=== PATIENT | male | born 1970 | race Two or more races ===

== ENCOUNTER 2018-04-16 15:34 | Emergency (ER) | payer OTHER ==
--- NOTE | 2018-04-16 17:33 | EDM.PDOC ---
<Miguel Pratt Z - Last Filed: 04/16/18 17:43> ED HPI GENERAL MEDICAL PROBLEM - General Chief Complaint: Skin Complaint Stated Complaint: LT NOSTRIL ISSUES Time Seen by Provider: 04/16/18 17:15 Source of Information: Reports: Patient - History of Present Illness INITIAL COMMENTS - FREE TEXT/NARRATIVE: HISTORY AND PHYSICAL: History of present illness: 47-year-old male presenting with cellulitis and swelling of the septal and upper lip area. Patient states the patient started on April 08 after he had been snorting cocaine for the past 2-3 days prior. Patient states that there was a wound in the area and it seemed to start to swell and get worse. Patient went to [facility] for initial assessment 2 days prior where they started him on ampicillin however the patient stated that his swelling and facial pain got worse he will be presented to the clinic last night where they lanced the site however there was no purulent discharge eliminated, patient was subsequently given a prescription for Levaquin 750 mg to be taken for 10 days along with Percocet for pain. Patient is stating that now his facial swelling has improved, he feels that the antibiotics have actually improved his swelling and the Percocet is controlling his pain. Patient is actually now stated that he would not like anything further to be done at that he feels that the antibiotics are adequately working. Review of systems: As per history of present illness and below otherwise all systems reviewed and negative. Past medical history: As per history of present illness and as reviewed below otherwise noncontributory. Surgical history: As per history of present illness and as reviewed below otherwise noncontributory. Social history: No reported history of drug or alcohol abuse. Family history: As per history of present illness and as reviewed below otherwise noncontributory. Physical exam: HEENT: Atraumatic, normocephalic, pupils reactive, negative for conjunctival pallor or scleral icterus, mucous membranes moist, swelling of the upper lip and philtrum area; there is mild erythema around the area of swelling/ induration, throat clear, neck supple, nontender, trachea midline. Lungs: Clear to auscultation, breath sounds equal bilaterally, chest nontender. Heart: S1S2, regular, negative for clicks, rubs, or JVD. Extremities: Atraumatic, negative for cords or calf pain. Neurovascular unremarkable. Neuro: Awake, alert, oriented. Cranial nerves II through XII unremarkable. Cerebellum unremarkable. Motor and sensory unremarkable throughout. Exam nonfocal. Diagnostics: None Therapeutics: None Impression: 47-year-old male presenting with cellulitis of the upper lip and philtrum area improving on antibiotics prescribed by outpatient clinic. Plan: Continue with medication as prescribed by [facility] which included Levaquin 750 mg once daily for 10 days. If symptoms worsen including swelling, fevers or chills or any other signs of systemic infection the patient is to return to the ER for reevaluation or follow up with primary care provider. Definitive disposition and diagnosis as appropriate pending reevaluation and review of above. Face Pain Score (Numeric/FACES): 10 - Related Data Allergies Allergy/AdvReac Type Severity Reaction Status Date / Time No Known Allergies Allergy Verified 04/16/18 16:31 Home Meds: Home Meds Glimepiride 4 mg PO DAILY 04/16/18 [History] Levofloxacin [Levaquin] 750 mg PO DAILY 04/16/18 [History] Lisinopril 20 mg PO DAILY 04/16/18 [History] metFORMIN [Glucophage XR] 1,000 mg PO BIDMEALS 04/16/18 [History] Past Medical History Cardiovascular History: Reports: Hypertension Endocrine/Metabolic History: Reports: Diabetes, Type II - Infectious Disease History Infectious Disease History: Reports: None Social & Family History - Family History Family Medical History: Noncontributory - Tobacco Use Smoking Status *Q: Current Some Day Smoker Years of Tobacco use: 2 Packs/Tins Daily: 0.1 - Caffeine Use Caffeine Use: Reports: Coffee - Recreational Drug Use Recreational Drug Use: Yes Recreational Drug Type: Reports: Marijuana/Hashish ED ROS GENERAL - Review of Systems Review Of Systems: ROS reveals no pertinent complaints other than HPI. ED EXAM, SKIN/RASH Exam: See Below Course - Vital Signs Last Recorded V/S: Last Vital Signs Temp 36.4 C 04/16/18 16:33 Pulse 93 04/16/18 16:33 Resp 18 04/16/18 16:33 BP 120/77 04/16/18 16:33 Pulse Ox 96 04/16/18 16:33 Departure - Departure Time of Disposition: 17:50 Disposition: Home, Self-Care 01 Condition: Good Clinical Impression: Cellulitis - Discharge Information Instructions: Cellulitis, Adult, Preseptal Cellulitis, Adult Referrals: Miguel Pratt MD [Emergency Provider] - PCP,Not In Area [Primary Care Provider] - Forms: ED Department Discharge Additional Instructions: Please continue to take the antibiotics as prescribed. Continue take the pain medications as prescribed, also put ice on the area which will help decrease the swelling and pain that you are feeling. Currently you've taken 1 day course of a 10 day course of antibiotics, please allow for adequate time for the antibiotics to take full effect however please watch out for swelling that is getting worse, any signs of fevers/chills, or worsening of your symptoms. If any of these are present please return to the ER for reevaluation or see your primary care provider. Please make a follow-up appointment with Dr. Pratt at the family medicine residency clinic in the [facility] for Thursday or Thursday of next week. The following information is given to patients seen in the emergency department who are being discharged to home. This information is to outline your options for follow-up care. We provide all patients seen in our emergency department with a follow-up referral. The need for follow-up, as well as the timing and circumstances, are variable depending upon the specifics of your emergency department visit. If you don't have a primary care physician on staff, we will provide you with a referral. We always advise you to contact your personal physician following an emergency department visit to inform them of the circumstance of the visit and for follow-up with them and/or the need for any referrals to a consulting specialist. The emergency department will also refer you to a specialist when appropriate. This referral assures that you have the opportunity for follow-up care with a specialist. All of these measure are taken in an effort to provide you with optimal care, which includes your follow-up. Under all circumstances we always encourage you to contact your private physician who remains a resource for coordinating your care. When calling for follow-up care, please make the office aware that this follow-up is from your recent emergency room visit. If for any reason you are refused follow-up, please contact the [facility] Emergency Department at and asked to speak to the emergency department charge nurse. <Meghan Canela - Last Filed: 04/16/18 17:52> ED HPI GENERAL MEDICAL PROBLEM - History of Present Illness INITIAL COMMENTS - FREE TEXT/NARRATIVE: This is Dr. Canela dictating an addendum note as I'm the supervising physician on this case and I personally seen this patient. I agree with a history and physical as above and in discussing options for him he feels that he might have overreacted and that he did not give the medication time and that the swelling is improving. He would like to defer any intervention at this time and just monitor it for the next 24 hours and continue his antibiotics. We did discussed reasons to return to the ED and things to be worried about and he accepts those. ED ROS GENERAL - Review of Systems Review Of Systems: ROS reveals no pertinent complaints other than HPI. ED EXAM, SKIN/RASH Exam: See Below (See dictation) Departure - Departure Condition: Good
== END 2018-04-16 17:50 | disposition home or self-care (01) ==
LOC: MW.ED 15:34
DX: K13.0 Diseases of lips (principal); I10 Essential (primary) hypertension; E11.9 Type 2 diabetes mellitus without complications; F17.210 Nicotine dependence, cigarettes, uncomplicated; Z79.899 Other long term (current) drug therapy; Z79.84 Long term (current) use of oral hypoglycemic drugs
CPT/HCPCS: 99283

== ENCOUNTER 2018-04-17 17:01 | Inpatient (IN) | payer OTHER ==
--- NOTE | 2018-04-17 17:36 | EDM.PDOC ---
<Meghan Canela - Last Filed: 04/17/18 20:08> ED HPI GENERAL MEDICAL PROBLEM - General Chief Complaint: Skin Complaint Stated Complaint: Lip swelling Time Seen by Provider: 04/17/18 17:01 - History of Present Illness INITIAL COMMENTS - FREE TEXT/NARRATIVE: This is Dr. Canela dictating an addendum note as I assumed care of this case at 7 PM. I was involved in the evaluation of this patient yesterday when he came in due to concerns about swelling. When I saw him yesterday he felt quite adamant about not testing or intervention as he thought that he might of overreacted and it was improving. At that point there was some induration and swelling to his upper lip and left near of the nose with some diffuse ill- defined erythema in the nasal labial folds the patient was nontoxic and had just started his Levaquin. Today on my evaluation the symptoms have worsened and the swelling and induration has increased causing a diffuse swollen upper lip extending into the left near and diffuse erythema in the surround. There is no crepitus here there is no extension to the maxilla on palpation and the septum of the nose is intact. Labs have been reviewed by me and I have discussed with the patient his elevated glucose of 331. He says that he has been taking his metformin but he ran out of his glimepride. I do not feel that this elevated blood sugar is helping us. He did start on ampicillin then switch to Levaquin 2 doses and here in the ED received a dose of clindamycin. Again to reiterate from my note from yesterday incision and drainage was attempted at the outside ED on April 13 without yield of any fluid. I reviewed the CT scan with this patient including the punctate small areas of low attenuation fluid with in the diffuse soft tissue thickening and edema in this region and that there is a small pocket measuring 1.3 cm that will likely need drainage I have offered him admission here with the understanding that we do not have plastic surgery until Thursday morning, for IV antibiotics and glucose management and if his symptomatology worsens he would need transfer. I've also offered him transferred to [facility] for evaluation by plastic surgery/ENT and admission there. Patient is currently contemplating what he would like to do at 1940 5 PM. He says he is feeling better from a pain perspective. After a liter of fluid I will repeat the Accu-Chek and given the second liter of IV fluids. After giving the patient some time to contemplate the choices he says that he does not want to be transferred to [facility] and would prefer admission here. He understands our limitations and that we will not have plastic surgery/ ENT until Thursday morning and he accepts those. He would like to try IV antibiotics to see if this improves without further intervention. I discussed this case with Dr. Dhillon at 2005 p.m. and he accepts the patient for inpatient care. We will give him a dose of vancomycin and plan for admission. Impression: facial cellulitis/abscess failed outpatient treatment - Related Data Allergies Allergy/AdvReac Type Severity Reaction Status Date / Time No Known Allergies Allergy Verified 04/17/18 17:26 Home Meds: Home Meds Glimepiride 1 tab PO DAILY 04/16/18 [History] Levofloxacin [Levaquin] 1 tab PO DAILY 04/16/18 [History] Lisinopril 1 tab PO DAILY 04/16/18 [History] metFORMIN HCl [Metformin HCl] 1 tab PO BID 04/17/18 [History] ED ROS GENERAL - Review of Systems Review Of Systems: ROS reveals no pertinent complaints other than HPI. ED EXAM, SKIN/RASH Exam: See Below (see dictation) Course - Vital Signs Last Recorded V/S: Last Vital Signs Temp 97.4 F 04/18/18 08:00 Pulse 78 04/18/18 08:00 Resp 16 04/18/18 08:00 BP 136/95 H 04/18/18 08:00 Pulse Ox 96 04/18/18 08:00 - Orders/Labs/Meds Orders: Active Orders 24 hr Category Date Time Status Max Facial Sinus w wo Cont [CT] Stat Exams 04/17/18 17:55 Taken Sodium Chloride 0.9% [Saline Flush] Med 04/17/18 17:41 Active 10 ml FLUSH ASDIRECTED PRN Sodium Chloride 0.9% [Saline Flush] Med 04/17/18 17:41 Active 2.5 ml FLUSH ASDIRECTED PRN Saline Lock Insert [OM.PC] Stat Oth 04/17/18 17:41 Ordered Medication Orders Acetaminophen (Tylenol) 650 mg PO Q6H PRN PRN Reason: Pain Last Admin: 04/18/18 02:25 Dose: 650 mg Vancomycin HCl 1,250 mg/ (Sodium Chloride) 250 mls @ 166.667 mls/hr IV Q8H [facility] Ibuprofen (Motrin) 400 mg PO Q6H PRN PRN Reason: Pain Last Admin: 04/18/18 07:26 Dose: 400 mg Admin: 04/18/18 01:21 Dose: 400 mg Insulin Aspart (Novolog) 0 unit SUBCUT TIDAC [facility]; Protocol Last Admin: 04/18/18 07:28 Dose: 2 unit Lisinopril (Prinivil) 20 mg PO DAILY [facility] Metformin HCl (Glucophage) 1,000 mg PO BIDPC [facility] Last Admin: 04/18/18 07:33 Dose: 1,000 mg Oxycodone HCl (Oxycodone) 5 mg PO Q4H PRN PRN Reason: Pain Last Admin: 04/18/18 05:08 Dose: 5 mg Admin: 04/17/18 23:39 Dose: 5 mg Sodium Chloride (Saline Flush) 10 ml FLUSH ASDIRECTED PRN PRN Reason: Keep Vein Open Last Admin: 04/17/18 18:00 Dose: 10 ml Sodium Chloride (Saline Flush) 2.5 ml FLUSH ASDIRECTED PRN PRN Reason: Keep Vein Open Last Admin: 04/17/18 18:00 Dose: 2.5 ml Vancomycin HCl (Pharmacy To Dose - Vancomycin) 1 dose .XX ASDIRECTED [facility] Labs: Laboratory Tests 04/17/18 04/17/18 04/17/18 Range/Units 17:54 17:54 19:47 WBC 9.87 (4.0-11.0) K/uL RBC 5.03 (4.50-5.90) M/uL Hgb 15.9 (13.0-17.0) g/dL Hct 42.5 (38.0-50.0) % MCV 84.5 (80.0-98.0) fL MCH 31.6 (27.0-32.0) pg MCHC 37.4 H (31.0-37.0) g/dL RDW Std Deviation 40.4 (28.0-62.0) fl RDW Coeff of Cyndie 13 (11.0-15.0) % Plt Count 240 (150-400) K/uL MPV 9.90 (7.40-12.00) fL Neut % (Auto) 73.8 (48.0-80.0) % Lymph % (Auto) 16.8 (16.0-40.0) % Deuel % (Auto) 8.3 (0.0-15.0) % Eos % (Auto) 0.9 (0.0-7.0) % Baso % (Auto) 0.2 (0.0-1.5) % Neut # (Auto) 7.3 H (1.4-5.7) K/uL Lymph # (Auto) 1.7 (0.6-2.4) K/uL Deuel # (Auto) 0.8 (0.0-0.8) K/uL Eos # (Auto) 0.1 (0.0-0.7) K/uL Baso # (Auto) 0.0 (0.0-0.1) K/uL Nucleated RBC % 0.0 /100WBC Nucleated RBCs # 0 K/uL Sodium 129 L (136-148) mmol/L Potassium 4.2 (3.5-5.1) mmol/L Chloride 95 L (98-107) mmol/L Carbon Dioxide 23.4 (21.0-32.0) mmol/L BUN 13 (7.0-18.0) mg/dL Creatinine 1.0 (0.8-1.3) mg/dL Est Cr Clr Drug Dosing 89.30 mL/min Estimated GFR (MDRD) > 60.0 ml/min Glucose 331 H (74-106) mg/dL POC Glucose 280 H (60-110) mg/dL Calcium 9.3 (8.5-10.1) mg/dL Total Bilirubin 0.6 (0.2-1.0) mg/dL AST 27 (15-37) IU/L ALT 33 (14-63) IU/L Alkaline Phosphatase 79 (46-116) U/L Total Protein 7.8 (6.4-8.2) g/dL Albumin 3.3 L (3.4-5.0) g/dL Globulin 4.5 H (2.0-3.5) g/dL Albumin/Globulin Ratio 0.7 L (1.3-2.8) Meds: Medications Generic Name Dose Route Start Last Admin Trade Name Freq PRN Reason Stop Dose Admin Acetaminophen 650 mg 04/17/18 21:47 04/18/18 02:25 Tylenol PO 650 mg Q6H PRN Administration Pain Vancomycin HCl 1,250 mg/ 250 mls @ 166.667 mls/hr 04/18/18 12:00 Sodium Chloride IV Q8H [facility] Ibuprofen 400 mg 04/17/18 21:47 04/18/18 07:26 Motrin PO 400 mg Q6H PRN Administration Pain Insulin Aspart 0 unit 04/18/18 07:30 04/18/18 07:28 Novolog SUBCUT 2 unit TIDAC [facility] Administration Protocol Lisinopril 20 mg 04/18/18 09:00 Prinivil PO DAILY [facility] Metformin HCl 1,000 mg 04/18/18 08:30 04/18/18 07:33 Glucophage PO 1,000 mg BIDPC [facility] Administration Oxycodone HCl 5 mg 04/17/18 21:46 04/18/18 05:08 Oxycodone PO 5 mg Q4H PRN Administration Pain Sodium Chloride 10 ml 04/17/18 17:41 04/17/18 18:00 Saline Flush FLUSH 10 ml ASDIRECTED PRN Administration Keep Vein Open Sodium Chloride 2.5 ml 04/17/18 17:41 04/17/18 18:00 Saline Flush FLUSH 2.5 ml ASDIRECTED PRN Administration Keep Vein Open Vancomycin HCl 1 dose 04/17/18 21:45 Pharmacy To Dose - Vancomycin .XX ASDIRECTED [facility] Discontinued Medications Generic Name Dose Route Start Last Admin Trade Name Freq PRN Reason Stop Dose Admin Clindamycin Phosphate 600 mg/ 50 mls @ 100 mls/hr 04/17/18 17:41 04/17/18 17: 57 Premix IV 04/17/18 18:10 100 mls/hr ONETIME ONE Administration Sodium Chloride 1,000 mls @ 999 mls/hr 04/17/18 17:56 04/17/18 18:03 Normal Saline IV 04/17/18 18:56 999 mls/hr .Bolus ONE Administration Sodium Chloride 1,000 mls @ 999 mls/hr 04/17/18 18:45 04/17/18 19:53 Normal Saline IV 04/17/18 19:45 999 mls/hr .Bolus ONE Administration Vancomycin HCl 1 gm/ Sodium 250 mls @ 250 mls/hr 04/17/18 20:07 04/17/18 20: 16 Chloride IV 04/17/18 21:06 250 mls/hr ONETIME ONE Administration Vancomycin HCl 1,250 mg/ 250 mls @ 166.667 mls/hr 04/18/18 04:00 04/18/18 03: 15 Dextrose/Water IV 166.667 mls/hr Q8H [facility] Administration Iopamidol 75 ml 04/17/18 19:03 04/17/18 19:04 Isovue Multipack-370 (76%) IVPUSH 04/17/18 19:04 75 ml ONETIME STA Administration Ketorolac Tromethamine 30 mg 04/17/18 17:44 04/17/18 17:57 Toradol IVPUSH 04/17/18 17:45 30 mg ONETIME ONE Administration Departure - Departure Time of Disposition: 20:09 Disposition: Admitted As Inpatient 67 Condition: Good Clinical Impression: Facial cellulitis, Nasal abscess, Facial abscess - Discharge Information - My Orders Last 24 Hours: My Active Orders 04/17/18 17:41 Sodium Chloride 0.9% [Saline Flush] 10 ml FLUSH ASDIRECTED PRN Sodium Chloride 0.9% [Saline Flush] 2.5 ml FLUSH ASDIRECTED PRN Saline Lock Insert [OM.PC] Stat 04/17/18 17:55 Max Facial Sinus w wo Cont [CT] Stat - Assessment/Plan Last 24 Hours: My Active Orders 04/17/18 17:41 Sodium Chloride 0.9% [Saline Flush] 10 ml FLUSH ASDIRECTED PRN Sodium Chloride 0.9% [Saline Flush] 2.5 ml FLUSH ASDIRECTED PRN Saline Lock Insert [OM.PC] Stat 04/17/18 17:55 Max Facial Sinus w wo Cont [CT] Stat <Pushpa Felipe - Last Filed: 04/18/18 08:31> ED HPI GENERAL MEDICAL PROBLEM - General Source of Information: Reports: Patient History Limitations: Reports: No Limitations - History of Present Illness INITIAL COMMENTS - FREE TEXT/NARRATIVE: History of present illness: []Patient is a diabetic and has a nasal infection his upper lip that began on April 08 after he been snorting cocaine for 2-3 days prior. He was seen at [facility] in [facility] and put on ampicillin on April 13. He returned to the clinic on April 15 where they tried to drain it but were unsuccessful according to the patient. At that time they changed his ampicillin to Levaquin and gave him Percocet. Patient was seen here yesterday for recheck was told to give the antibiotics more time to work. Patient returns today with worsening symptoms and states he ran out of his Percocet. Patient denies any fevers, headaches, difficulty swallowing or breathing. Patient was referred to the [facility] medical clinic. Review of systems: As per history of present illness and below otherwise all systems reviewed and negative. Past medical history: As per history of present illness and as reviewed below otherwise noncontributory. Surgical history: As per history of present illness and as reviewed below otherwise noncontributory. Social history: No reported history of drug or alcohol abuse. Family history: As per history of present illness and as reviewed below otherwise noncontributory. Physical exam: General: Well developed, well nourished in NAD HEENT: Atraumatic, normocephalic, pupils reactive, negative for conjunctival pallor or scleral icterus, mucous membranes moist, throat clear, neck supple, nontender, trachea midline. The skin superior to upper lip is indurated and erythematous, his upper lip is edematous. Lungs: Clear to auscultation, breath sounds equal bilaterally, chest nontender. Heart: S1S2, regular, negative for clicks, rubs, or JVD. Abdomen: Soft, nondistended, nontender. Negative for masses or hepatosplenomegaly. Negative for costovertebral tenderness. Pelvis: Stable nontender. Genitourinary: Deferred. Rectal: Deferred. Extremities: Atraumatic, negative for cords or calf pain. Neurovascular unremarkable. Neuro: Awake, alert, oriented. Cranial nerves II through XII unremarkable. Cerebellum unremarkable. Motor and sensory unremarkable throughout. Exam nonfocal. Diagnostics: []CBC normal, chemistry normal except glucose of 333, CT scan face and sinuses is pending, blood cultures were not drawn at this time due to patient on 2 different antibiotics Therapeutics: []Patient given clindamycin IV Impression: []Patient cellulitis Plan: []As this case is signed out to Dr. Canela to check the CT scan results and for final disposition Definitive disposition and diagnosis as appropriate pending reevaluation and review of above. Face Pain Score (Numeric/FACES): 8 Past Medical History Cardiovascular History: Reports: Hypertension Endocrine/Metabolic History: Reports: Diabetes, Type II - Infectious Disease History Infectious Disease History: Reports: None Social & Family History - Family History Family Medical History: Noncontributory - Caffeine Use Caffeine Use: Reports: Coffee ED ROS GENERAL - Review of Systems Review Of Systems: See Below ED EXAM, SKIN/RASH Exam: See Below (See history of present illness) Course - Vital Signs Last Recorded V/S: Last Vital Signs Temp 97.4 F 04/18/18 08:00 Pulse 78 04/18/18 08:00 Resp 16 04/18/18 08:00 BP 136/95 H 04/18/18 08:00 Pulse Ox 96 04/18/18 08:00 - Orders/Labs/Meds Orders: Active Orders 24 hr Category Date Time Status Max Facial Sinus w wo Cont [CT] Stat Exams 04/17/18 17:55 Taken Sodium Chloride 0.9% [Saline Flush] Med 04/17/18 17:41 Active 10 ml FLUSH ASDIRECTED PRN Sodium Chloride 0.9% [Saline Flush] Med 04/17/18 17:41 Active 2.5 ml FLUSH ASDIRECTED PRN Saline Lock Insert [OM.PC] Stat Oth 04/17/18 17:41 Ordered Medication Orders Acetaminophen (Tylenol) 650 mg PO Q6H PRN PRN Reason: Pain Last Admin: 04/18/18 02:25 Dose: 650 mg Vancomycin HCl 1,250 mg/ (Sodium Chloride) 250 mls @ 166.667 mls/hr IV Q8H [facility] Ibuprofen (Motrin) 400 mg PO Q6H PRN PRN Reason: Pain Last Admin: 04/18/18 07:26 Dose: 400 mg Admin: 04/18/18 01:21 Dose: 400 mg Insulin Aspart (Novolog) 0 unit SUBCUT TIDAC [facility]; Protocol Last Admin: 04/18/18 07:28 Dose: 2 unit Lisinopril (Prinivil) 20 mg PO DAILY [facility] Metformin HCl (Glucophage) 1,000 mg PO BIDPC [facility] Last Admin: 04/18/18 07:33 Dose: 1,000 mg Oxycodone HCl (Oxycodone) 5 mg PO Q4H PRN PRN Reason: Pain Last Admin: 04/18/18 05:08 Dose: 5 mg Admin: 04/17/18 23:39 Dose: 5 mg Sodium Chloride (Saline Flush) 10 ml FLUSH ASDIRECTED PRN PRN Reason: Keep Vein Open Last Admin: 04/17/18 18:00 Dose: 10 ml Sodium Chloride (Saline Flush) 2.5 ml FLUSH ASDIRECTED PRN PRN Reason: Keep Vein Open Last Admin: 04/17/18 18:00 Dose: 2.5 ml Vancomycin HCl (Pharmacy To Dose - Vancomycin) 1 dose .XX ASDIRECTED [facility] Labs: Laboratory Tests 04/17/18 04/17/18 04/17/18 Range/Units 17:54 17:54 19:47 WBC 9.87 (4.0-11.0) K/uL RBC 5.03 (4.50-5.90) M/uL Hgb 15.9 (13.0-17.0) g/dL Hct 42.5 (38.0-50.0) % MCV 84.5 (80.0-98.0) fL MCH 31.6 (27.0-32.0) pg MCHC 37.4 H (31.0-37.0) g/dL RDW Std Deviation 40.4 (28.0-62.0) fl RDW Coeff of Cyndie 13 (11.0-15.0) % Plt Count 240 (150-400) K/uL MPV 9.90 (7.40-12.00) fL Neut % (Auto) 73.8 (48.0-80.0) % Lymph % (Auto) 16.8 (16.0-40.0) % Deuel % (Auto) 8.3 (0.0-15.0) % Eos % (Auto) 0.9 (0.0-7.0) % Baso % (Auto) 0.2 (0.0-1.5) % Neut # (Auto) 7.3 H (1.4-5.7) K/uL Lymph # (Auto) 1.7 (0.6-2.4) K/uL Deuel # (Auto) 0.8 (0.0-0.8) K/uL Eos # (Auto) 0.1 (0.0-0.7) K/uL Baso # (Auto) 0.0 (0.0-0.1) K/uL Nucleated RBC % 0.0 /100WBC Nucleated RBCs # 0 K/uL Sodium 129 L (136-148) mmol/L Potassium 4.2 (3.5-5.1) mmol/L Chloride 95 L (98-107) mmol/L Carbon Dioxide 23.4 (21.0-32.0) mmol/L BUN 13 (7.0-18.0) mg/dL Creatinine 1.0 (0.8-1.3) mg/dL Est Cr Clr Drug Dosing 89.30 mL/min Estimated GFR (MDRD) > 60.0 ml/min Glucose 331 H (74-106) mg/dL POC Glucose 280 H (60-110) mg/dL Calcium 9.3 (8.5-10.1) mg/dL Total Bilirubin 0.6 (0.2-1.0) mg/dL AST 27 (15-37) IU/L ALT 33 (14-63) IU/L Alkaline Phosphatase 79 (46-116) U/L Total Protein 7.8 (6.4-8.2) g/dL Albumin 3.3 L (3.4-5.0) g/dL Globulin 4.5 H (2.0-3.5) g/dL Albumin/Globulin Ratio 0.7 L (1.3-2.8) Meds: Medications Generic Name Dose Route Start Last Admin Trade Name Freq PRN Reason Stop Dose Admin Acetaminophen 650 mg 04/17/18 21:47 04/18/18 02:25 Tylenol PO 650 mg Q6H PRN Administration Pain Vancomycin HCl 1,250 mg/ 250 mls @ 166.667 mls/hr 04/18/18 12:00 Sodium Chloride IV Q8H [facility] Ibuprofen 400 mg 04/17/18 21:47 04/18/18 07:26 Motrin PO 400 mg Q6H PRN Administration Pain Insulin Aspart 0 unit 04/18/18 07:30 04/18/18 07:28 Novolog SUBCUT 2 unit TIDAC [facility] Administration Protocol Lisinopril 20 mg 04/18/18 09:00 Prinivil PO DAILY [facility] Metformin HCl 1,000 mg 04/18/18 08:30 04/18/18 07:33 Glucophage PO 1,000 mg BIDPC [facility] Administration Oxycodone HCl 5 mg 04/17/18 21:46 04/18/18 05:08 Oxycodone PO 5 mg Q4H PRN Administration Pain Sodium Chloride 10 ml 04/17/18 17:41 04/17/18 18:00 Saline Flush FLUSH 10 ml ASDIRECTED PRN Administration Keep Vein Open Sodium Chloride 2.5 ml 04/17/18 17:41 04/17/18 18:00 Saline Flush FLUSH 2.5 ml ASDIRECTED PRN Administration Keep Vein Open Vancomycin HCl 1 dose 04/17/18 21:45 Pharmacy To Dose - Vancomycin .XX ASDIRECTED [facility] Discontinued Medications Generic Name Dose Route Start Last Admin Trade Name Freq PRN Reason Stop Dose Admin Clindamycin Phosphate 600 mg/ 50 mls @ 100 mls/hr 04/17/18 17:41 04/17/18 17: 57 Premix IV 04/17/18 18:10 100 mls/hr ONETIME ONE Administration Sodium Chloride 1,000 mls @ 999 mls/hr 04/17/18 17:56 04/17/18 18:03 Normal Saline IV 04/17/18 18:56 999 mls/hr .Bolus ONE Administration Sodium Chloride 1,000 mls @ 999 mls/hr 04/17/18 18:45 04/17/18 19:53 Normal Saline IV 04/17/18 19:45 999 mls/hr .Bolus ONE Administration Vancomycin HCl 1 gm/ Sodium 250 mls @ 250 mls/hr 04/17/18 20:07 04/17/18 20: 16 Chloride IV 04/17/18 21:06 250 mls/hr ONETIME ONE Administration Vancomycin HCl 1,250 mg/ 250 mls @ 166.667 mls/hr 04/18/18 04:00 04/18/18 03: 15 Dextrose/Water IV 166.667 mls/hr Q8H [facility] Administration Iopamidol 75 ml 04/17/18 19:03 04/17/18 19:04 Isovue Multipack-370 (76%) IVPUSH 04/17/18 19:04 75 ml ONETIME STA Administration Ketorolac Tromethamine 30 mg 04/17/18 17:44 04/17/18 17:57 Toradol IVPUSH 04/17/18 17:45 30 mg ONETIME ONE Administration - My Orders Last 24 Hours: My Active Orders 04/17/18 17:41 Sodium Chloride 0.9% [Saline Flush] 10 ml FLUSH ASDIRECTED PRN Sodium Chloride 0.9% [Saline Flush] 2.5 ml FLUSH ASDIRECTED PRN Saline Lock Insert [OM.PC] Stat 04/17/18 17:55 Max Facial Sinus w wo Cont [CT] Stat - Assessment/Plan Last 24 Hours: My Active Orders 04/17/18 17:41 Sodium Chloride 0.9% [Saline Flush] 10 ml FLUSH ASDIRECTED PRN Sodium Chloride 0.9% [Saline Flush] 2.5 ml FLUSH ASDIRECTED PRN Saline Lock Insert [OM.PC] Stat 04/17/18 17:55 Max Facial Sinus w wo Cont [CT] Stat
[2018-04-17] MEDS ORDERED: Sodium Chloride 0.9% 2.5 ML Syringe FLUSH PRN (17:41)
[2018-04-17] MEDS ORDERED: Sodium Chloride 0.9% 10 ML Syringe FLUSH PRN (17:41)
[2018-04-17] MEDS ORDERED: Clindamycin Phosphate in D5W 600 MG in Premix Bag 50 BAG IV ONE ×2 (17:41)
[2018-04-17] MEDS ORDERED: Ketorolac 30 MG/ML SDV IVPUSH ONE (17:44)
[2018-04-17] MEDS ORDERED: Sodium Chloride 0.9% 1,000 ML IV ONE ×2 (17:56→18:45)
[2018-04-17 18:27] LABS: CHLORIDE,CL 95 mmol/L (98-107); SODIUM,NA 129 mmol/L (136-148)
[2018-04-17] MEDS ORDERED: Iopamidol 755 MG/ML 500 ML Multipack Bottle IVPUSH STA (19:03)
--- NOTE | 2018-04-17 23:20 | PCM.HP ---
H&P History of Present Illness - General Date of Service: 04/17/18 Admit Problem/Dx: Admission Diagnosis/Problem Admission Diagnosis/Problem Cellulitis and abscess of face - History of Present Illness Initial Comments - Free Text/Narative: 47 yo male who developed swelling and induraiton of his upper lip after snorting cocain. He was seen in [facility] with attempted drainage and treated with ampicillin which was switch to levaquin. He was seen in the ER [place] yesterday and then again today in which he was noted to have increase in swelling and erythema of the upper/lip. CT of the face reported cellulitis and early abscess formation in the midline in the infranasa premaxillary region and superior labial region. Patient refused the offer to transfer to [place]. Face Pain Score (Numeric/FACES): 3 - Related Data Allergies/Adverse Reactions: Allergies Allergy/AdvReac Type Severity Reaction Status Date / Time No Known Allergies Allergy Verified 04/17/18 17:26 Home Medications: Home Meds Glimepiride 1 tab PO DAILY 04/16/18 [History] Levofloxacin [Levaquin] 1 tab PO DAILY 04/16/18 [History] Lisinopril 1 tab PO DAILY 04/16/18 [History] metFORMIN HCl [Metformin HCl] 1 tab PO BID 04/17/18 [History] Past Medical History Cardiovascular History: Reports: Hypertension Endocrine/Metabolic History: Reports: Diabetes, Type II - Infectious Disease History Infectious Disease History: Reports: None - Past Surgical History Head Surgeries/Procedures: Reports: None Social & Family History - Family History Family Medical History: Noncontributory - Tobacco Use Smoking Status *Q: Never Smoker Second Hand Smoke Exposure: No - Caffeine Use Caffeine Use: Reports: Coffee, Energy Drinks, Soda - Alcohol Use Date of Last Drink: 04/07/18 - Recreational Drug Use Recreational Drug Use: Yes Drug Use in Last 12 Months: Yes Recreational Drug Type: Reports: Cocaine Recreational Drug Use Frequency: Socially H&P Review of Systems - Review of Systems: Review Of Systems: ROS reveals no pertinent complaints other than HPI. Exam - Exam Exam: See Below - Vital Signs Vital Signs: Last Vital Signs Temp 36.5 C 04/17/18 21:00 Pulse 70 04/17/18 21:00 Resp 16 04/17/18 21:00 BP 136/94 H 04/17/18 21:00 Pulse Ox 98 04/17/18 21:00 Weight: 128.049 kg - Exam General: Alert, Oriented HEENT: Other (swelling of the upper lip, no drainage or area of fluctuance noted ) Neck: Supple Lungs: Clear to Auscultation, Normal Respiratory Effort Cardiovascular: Regular Rate, Regular Rhythm GI/Abdominal Exam: Normal Bowel Sounds, Soft, Non-Tender Extremities: Normal Inspection, Non-Tender Skin: Warm, Dry, Intact Neurological: Cranial Nerves Intact. No: Focal Deficit - Patient Data Lab Results Last 24 hrs: Laboratory Results - last 24 hr 04/17/18 04/17/18 04/17/18 Range/Units 17:54 17:54 19:47 WBC 9.87 (4.0-11.0) K/uL RBC 5.03 (4.50-5.90) M/uL Hgb 15.9 (13.0-17.0) g/dL Hct 42.5 (38.0-50.0) % MCV 84.5 (80.0-98.0) fL MCH 31.6 (27.0-32.0) pg MCHC 37.4 H (31.0-37.0) g/dL RDW Std Deviation 40.4 (28.0-62.0) fl RDW Coeff of Cyndie 13 (11.0-15.0) % Plt Count 240 (150-400) K/uL MPV 9.90 (7.40-12.00) fL Neut % (Auto) 73.8 (48.0-80.0) % Lymph % (Auto) 16.8 (16.0-40.0) % [place] % (Auto) 8.3 (0.0-15.0) % Eos % (Auto) 0.9 (0.0-7.0) % Baso % (Auto) 0.2 (0.0-1.5) % Neut # (Auto) 7.3 H (1.4-5.7) K/uL Lymph # (Auto) 1.7 (0.6-2.4) K/uL [place] # (Auto) 0.8 (0.0-0.8) K/uL Eos # (Auto) 0.1 (0.0-0.7) K/uL Baso # (Auto) 0.0 (0.0-0.1) K/uL Nucleated RBC % 0.0 /100WBC Nucleated RBCs # 0 K/uL Sodium 129 L (136-148) mmol/L Potassium 4.2 (3.5-5.1) mmol/L Chloride 95 L (98-107) mmol/L Carbon Dioxide 23.4 (21.0-32.0) mmol/L BUN 13 (7.0-18.0) mg/dL Creatinine 1.0 (0.8-1.3) mg/dL Est Cr Clr Drug Dosing 89.30 mL/min Estimated GFR (MDRD) > 60.0 ml/min Glucose 331 H (74-106) mg/dL POC Glucose 280 H (60-110) mg/dL Calcium 9.3 (8.5-10.1) mg/dL Total Bilirubin 0.6 (0.2-1.0) mg/dL AST 27 (15-37) IU/L ALT 33 (14-63) IU/L Alkaline Phosphatase 79 (46-116) U/L Total Protein 7.8 (6.4-8.2) g/dL Albumin 3.3 L (3.4-5.0) g/dL Globulin 4.5 H (2.0-3.5) g/dL Albumin/Globulin Ratio 0.7 L (1.3-2.8) Result Diagrams: 04/18/18 08:12 04/18/18 08:12 Problem List Initiated/Reviewed/Updated: Yes Orders Last 24hrs: Active Orders 24 hr Category Date Time Status Patient Status [ADT] Stat ADT 04/17/18 20:07 Active Blood Glucose Check, Bedside [RC] TIDAC Care 04/17/18 19:45 Active Oxygen Therapy [RC] PRN Care 04/17/18 23:18 Ordered Up ad Maribel [RC] ASDIRECTED Care 04/17/18 23:18 Ordered VTE/DVT Education [RC] PER UNIT ROUTINE Care 04/17/18 23:18 Ordered Vital Signs [RC] Q4H Care 04/17/18 23:18 Ordered [place] [employer] Diet [DIET] Diet 04/18/18 Breakfast Active Max Facial Sinus w wo Cont [CT] Stat Exams 04/17/18 17:55 Taken BASIC METABOLIC PANEL,BMP [CHEM] AM Lab 04/18/18 05:11 Ordered BASIC METABOLIC PANEL,BMP [CHEM] AM Lab 04/19/18 05:11 Ordered BASIC METABOLIC PANEL,BMP [CHEM] AM Lab 04/20/18 05:11 Ordered CBC WITH AUTO DIFF [HEME] AM Lab 04/18/18 05:11 Ordered CBC WITH AUTO DIFF [HEME] AM Lab 04/19/18 05:11 Ordered CBC WITH AUTO DIFF [HEME] AM Lab 04/20/18 05:11 Ordered GLYCOSYLATED HEMOGLOBIN,HGBA1C [CHEM] AM Lab 04/18/18 05:11 Ordered VANCOMYCIN TROUGH [CHEM] Timed Lab 04/19/18 03:00 Ordered Acetaminophen [Tylenol] Med 04/17/18 21:47 Active 650 mg PO Q6H PRN Ibuprofen [Motrin] Med 04/17/18 21:47 Active 400 mg PO Q6H PRN Insulin Aspart [NovoLOG] Med 04/18/18 07:30 Active See Protocol SUBCUT TIDAC Lisinopril [Prinivil] Med 04/18/18 09:00 Active 20 mg PO DAILY Sodium Chloride 0.9% [Saline Flush] Med 04/17/18 17:41 Active 10 ml FLUSH ASDIRECTED PRN Sodium Chloride 0.9% [Saline Flush] Med 04/17/18 17:41 Active 2.5 ml FLUSH ASDIRECTED PRN Vancomycin 1,250 mg Med 04/18/18 04:00 Active Dextrose 5% in Water 250 ml IV Q8H Vancomycin Pharmacy to Dose [Pharmacy to Dose - Med 04/17/18 21:45 Pending Vancomycin] 1 dose .XX ASDIRECTED metFORMIN [Glucophage] Med 04/18/18 08:30 Active 1,000 mg PO BIDPC oxyCODONE Med 04/17/18 21:46 Active 5 mg PO Q4H PRN Saline Lock Insert [OM.PC] Stat Oth 04/17/18 17:41 Ordered Sequential Compression Device [OM.PC] Per Unit Routine Oth 04/17/18 23:18 Ordered Resuscitation Status Routine Resus Stat 04/17/18 23:18 Ordered Medication Orders Acetaminophen (Tylenol) 650 mg PO Q6H PRN PRN Reason: Pain Vancomycin HCl 1,250 mg/ (Dextrose/Water) 250 mls @ 166.667 mls/hr IV Q8H [facility] Ibuprofen (Motrin) 400 mg PO Q6H PRN PRN Reason: Pain Insulin Aspart (Novolog) 0 unit SUBCUT TIDAC [facility]; Protocol Lisinopril (Prinivil) 20 mg PO DAILY [facility] Metformin HCl (Glucophage) 1,000 mg PO BIDPC [facility] Oxycodone HCl (Oxycodone) 5 mg PO Q4H PRN PRN Reason: Pain Sodium Chloride (Saline Flush) 10 ml FLUSH ASDIRECTED PRN PRN Reason: Keep Vein Open Last Admin: 04/17/18 18:00 Dose: 10 ml Sodium Chloride (Saline Flush) 2.5 ml FLUSH ASDIRECTED PRN PRN Reason: Keep Vein Open Last Admin: 04/17/18 18:00 Dose: 2.5 ml Vancomycin HCl (Pharmacy To Dose - Vancomycin) 1 dose .XX ASDIRECTED [facility] Assessment/Plan Comment:: 47 yo male admitted with facial cellultis and early abcess formation of the upperlip/nose. Facial cellulitis/abscess: We will treat with vancomycin and clindamycin. 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
[2018-04-17] MEDS: oxyCODONE 5 MG Tab PO PRN (23:39)
[2018-04-18] MEDS: Ibuprofen 400 MG Tab PO PRN ×4 (01:21→20:16)
[2018-04-18] MEDS: Acetaminophen 325 MG Tab PO PRN ×3 (02:25→16:58)
[2018-04-18] MEDS: oxyCODONE 5 MG Tab PO PRN (05:08)
[2018-04-18] MEDS: Insulin Aspart 100 Units/ML 3 ML Pen SUBCUT SCH ×3 (07:28→17:42)
[2018-04-18] MEDS: metFORMIN 500 MG Tab PO SCH ×2 (07:33→17:00)
[2018-04-18 08:49] LABS: CHLORIDE,CL 100 mmol/L (98-107); SODIUM,NA 133 mmol/L (136-148)
[2018-04-18] MEDS: Lisinopril 10 MG Tab PO SCH (09:18)
[2018-04-18] MEDS: Morphine 2 MG/ML Syringe IVPUSH PRN ×5 (09:19→22:33)
--- NOTE | 2018-04-18 09:24 | PCM.PN ---
- General Info Date of Service: 04/18/18 - Review of Systems Systems Review Comment:: reporting pain on upper lip - Patient Data Vitals - Most Recent: Last Vital Signs Temp 36.3 C 04/18/18 08:00 Pulse 78 04/18/18 08:00 Resp 16 04/18/18 08:00 BP 142/94 H 04/18/18 09:18 Pulse Ox 96 04/18/18 08:00 Weight - Most Recent: 128.049 kg I&O - Last 24 Hours: Intake & Output 04/17/18 04/18/18 04/18/18 22:59 06:59 14:59 Intake Total 1400 Output Total 1100 Balance 300 Lab Results Last 24 Hours: Laboratory Results - last 24 hr 04/17/18 04/17/18 04/17/18 Range/Units 17:54 17:54 19:47 WBC 9.87 (4.0-11.0) K/uL RBC 5.03 (4.50-5.90) M/uL Hgb 15.9 (13.0-17.0) g/dL Hct 42.5 (38.0-50.0) % MCV 84.5 (80.0-98.0) fL MCH 31.6 (27.0-32.0) pg MCHC 37.4 H (31.0-37.0) g/dL RDW Std Deviation 40.4 (28.0-62.0) fl RDW Coeff of Cyndie 13 (11.0-15.0) % Plt Count 240 (150-400) K/uL MPV 9.90 (7.40-12.00) fL Neut % (Auto) 73.8 (48.0-80.0) % Lymph % (Auto) 16.8 (16.0-40.0) % [place] % (Auto) 8.3 (0.0-15.0) % Eos % (Auto) 0.9 (0.0-7.0) % Baso % (Auto) 0.2 (0.0-1.5) % Neut # (Auto) 7.3 H (1.4-5.7) K/uL Lymph # (Auto) 1.7 (0.6-2.4) K/uL [place] # (Auto) 0.8 (0.0-0.8) K/uL Eos # (Auto) 0.1 (0.0-0.7) K/uL Baso # (Auto) 0.0 (0.0-0.1) K/uL Nucleated RBC % 0.0 /100WBC Nucleated RBCs # 0 K/uL Sodium 129 L (136-148) mmol/L Potassium 4.2 (3.5-5.1) mmol/L Chloride 95 L (98-107) mmol/L Carbon Dioxide 23.4 (21.0-32.0) mmol/L BUN 13 (7.0-18.0) mg/dL Creatinine 1.0 (0.8-1.3) mg/dL Est Cr Clr Drug Dosing 89.30 mL/min Estimated GFR (MDRD) > 60.0 ml/min Glucose 331 H (74-106) mg/dL POC Glucose 280 H (60-110) mg/dL Hemoglobin A1c (4.5-6.2) % Calcium 9.3 (8.5-10.1) mg/dL Total Bilirubin 0.6 (0.2-1.0) mg/dL AST 27 (15-37) IU/L ALT 33 (14-63) IU/L Alkaline Phosphatase 79 (46-116) U/L Total Protein 7.8 (6.4-8.2) g/dL Albumin 3.3 L (3.4-5.0) g/dL Globulin 4.5 H (2.0-3.5) g/dL Albumin/Globulin Ratio 0.7 L (1.3-2.8) 04/18/18 04/18/18 04/18/18 Range/Units 06:20 08:12 08:12 WBC 8.11 (4.0-11.0) K/uL RBC 4.78 (4.50-5.90) M/uL Hgb 14.7 (13.0-17.0) g/dL Hct 41.3 (38.0-50.0) % MCV 86.4 (80.0-98.0) fL MCH 30.8 (27.0-32.0) pg MCHC 35.6 (31.0-37.0) g/dL RDW Std Deviation 41.5 (28.0-62.0) fl RDW Coeff of Cyndie 13 (11.0-15.0) % Plt Count 236 (150-400) K/uL MPV 9.90 (7.40-12.00) fL Neut % (Auto) 62.7 (48.0-80.0) % Lymph % (Auto) 26.1 (16.0-40.0) % [place] % (Auto) 8.5 (0.0-15.0) % Eos % (Auto) 2.5 (0.0-7.0) % Baso % (Auto) 0.2 (0.0-1.5) % Neut # (Auto) 5.1 (1.4-5.7) K/uL Lymph # (Auto) 2.1 (0.6-2.4) K/uL [place] # (Auto) 0.7 (0.0-0.8) K/uL Eos # (Auto) 0.2 (0.0-0.7) K/uL Baso # (Auto) 0.0 (0.0-0.1) K/uL Nucleated RBC % 0.0 /100WBC Nucleated RBCs # 0 K/uL Sodium (136-148) mmol/L Potassium (3.5-5.1) mmol/L Chloride (98-107) mmol/L Carbon Dioxide (21.0-32.0) mmol/L BUN (7.0-18.0) mg/dL Creatinine (0.8-1.3) mg/dL Est Cr Clr Drug Dosing mL/min Estimated GFR (MDRD) ml/min Glucose (74-106) mg/dL POC Glucose 236 H (60-110) mg/dL Hemoglobin A1c 11.4 H (4.5-6.2) % Calcium (8.5-10.1) mg/dL Total Bilirubin (0.2-1.0) mg/dL AST (15-37) IU/L ALT (14-63) IU/L Alkaline Phosphatase (46-116) U/L Total Protein (6.4-8.2) g/dL Albumin (3.4-5.0) g/dL Globulin (2.0-3.5) g/dL Albumin/Globulin Ratio (1.3-2.8) 04/18/18 Range/Units 08:12 WBC (4.0-11.0) K/uL RBC (4.50-5.90) M/uL Hgb (13.0-17.0) g/dL Hct (38.0-50.0) % MCV (80.0-98.0) fL MCH (27.0-32.0) pg MCHC (31.0-37.0) g/dL RDW Std Deviation (28.0-62.0) fl RDW Coeff of Cyndie (11.0-15.0) % Plt Count (150-400) K/uL MPV (7.40-12.00) fL Neut % (Auto) (48.0-80.0) % Lymph % (Auto) (16.0-40.0) % [place] % (Auto) (0.0-15.0) % Eos % (Auto) (0.0-7.0) % Baso % (Auto) (0.0-1.5) % Neut # (Auto) (1.4-5.7) K/uL Lymph # (Auto) (0.6-2.4) K/uL [place] # (Auto) (0.0-0.8) K/uL Eos # (Auto) (0.0-0.7) K/uL Baso # (Auto) (0.0-0.1) K/uL Nucleated RBC % /100WBC Nucleated RBCs # K/uL Sodium 133 L (136-148) mmol/L Potassium 4.2 (3.5-5.1) mmol/L Chloride 100 (98-107) mmol/L Carbon Dioxide 26.4 (21.0-32.0) mmol/L BUN 12 (7.0-18.0) mg/dL Creatinine 0.8 (0.8-1.3) mg/dL Est Cr Clr Drug Dosing 111.63 mL/min Estimated GFR (MDRD) > 60.0 ml/min Glucose 378 H (74-106) mg/dL POC Glucose (60-110) mg/dL Hemoglobin A1c (4.5-6.2) % Calcium 8.6 (8.5-10.1) mg/dL Total Bilirubin (0.2-1.0) mg/dL AST (15-37) IU/L ALT (14-63) IU/L Alkaline Phosphatase (46-116) U/L Total Protein (6.4-8.2) g/dL Albumin (3.4-5.0) g/dL Globulin (2.0-3.5) g/dL Albumin/Globulin Ratio (1.3-2.8) Med Orders - Current: Current Medications Acetaminophen (Tylenol) 650 mg PO Q6H PRN PRN Reason: Pain Last Admin: 04/18/18 02:25 Dose: 650 mg Vancomycin HCl 1,250 mg/ (Sodium Chloride) 250 mls @ 166.667 mls/hr IV Q8H [facility] Clindamycin Phosphate 300 mg/ (Premix) 50 mls @ 100 mls/hr IV Q6H [facility] Ibuprofen (Motrin) 400 mg PO Q6H PRN PRN Reason: Pain Last Admin: 04/18/18 07:26 Dose: 400 mg Insulin Aspart (Novolog) 0 unit SUBCUT TIDAC [facility]; Protocol Last Admin: 04/18/18 07:28 Dose: 2 unit Insulin Glargine (Lantus Solostar) 7 units SUBCUT BEDTIME [facility] Lisinopril (Prinivil) 20 mg PO DAILY [facility] Last Admin: 04/18/18 09:18 Dose: 20 mg Metformin HCl (Glucophage) 1,000 mg PO BIDPC [facility] Last Admin: 04/18/18 07:33 Dose: 1,000 mg Morphine Sulfate (Morphine) 2 mg IVPUSH Q2H PRN PRN Reason: Pain Last Admin: 04/18/18 09:19 Dose: 2 mg Oxycodone HCl (Oxycodone) 5 mg PO Q4H PRN PRN Reason: Pain Last Admin: 04/18/18 05:08 Dose: 5 mg Sodium Chloride (Saline Flush) 10 ml FLUSH ASDIRECTED PRN PRN Reason: Keep Vein Open Last Admin: 04/17/18 18:00 Dose: 10 ml Sodium Chloride (Saline Flush) 2.5 ml FLUSH ASDIRECTED PRN PRN Reason: Keep Vein Open Last Admin: 04/17/18 18:00 Dose: 2.5 ml Vancomycin HCl (Pharmacy To Dose - Vancomycin) 1 dose .XX ASDIRECTED [facility] Discontinued Medications Clindamycin Phosphate 600 mg/ (Premix) 50 mls @ 100 mls/hr IV ONETIME ONE Stop: 04/17/18 18:10 Last Admin: 04/17/18 17:57 Dose: 100 mls/hr Sodium Chloride (Normal Saline) 1,000 mls @ 999 mls/hr IV .Bolus ONE Stop: 04/17/18 18:56 Last Admin: 04/17/18 18:03 Dose: 999 mls/hr Sodium Chloride (Normal Saline) 1,000 mls @ 999 mls/hr IV .Bolus ONE Stop: 04/17/18 19:45 Last Admin: 04/17/18 19:53 Dose: 999 mls/hr Vancomycin HCl 1 gm/ Sodium (Chloride) 250 mls @ 250 mls/hr IV ONETIME ONE Stop: 04/17/18 21:06 Last Admin: 04/17/18 20:16 Dose: 250 mls/hr Vancomycin HCl 1,250 mg/ (Dextrose/Water) 250 mls @ 166.667 mls/hr IV Q8H [facility] Last Admin: 04/18/18 03:15 Dose: 166.667 mls/hr Iopamidol (Isovue Multipack-370 (76%)) 75 ml IVPUSH ONETIME STA Stop: 04/17/18 19:04 Last Admin: 04/17/18 19:04 Dose: 75 ml Ketorolac Tromethamine (Toradol) 30 mg IVPUSH ONETIME ONE Stop: 04/17/18 17:45 Last Admin: 04/17/18 17:57 Dose: 30 mg - Exam General: Alert, Oriented HEENT: Other (no change in swelling and induration of upper lip/nare) Neck: Supple GI/Abdominal Exam: Normal Bowel Sounds, Soft, Non-Tender Extremities: Non-Tender, No Pedal Edema Skin: Warm, Dry, Intact - Problem List Review Problem List Initiated/Reviewed/Updated: Yes - My Orders Last 24 Hours: My Active Orders 04/17/18 21:45 Vancomycin Pharmacy to Dose [Pharmacy to Dose - Vancomycin] 1 dose .XX ASDIRECTED 04/17/18 21:46 oxyCODONE 5 mg PO Q4H PRN 04/17/18 21:47 Acetaminophen [Tylenol] 650 mg PO Q6H PRN Ibuprofen [Motrin] 400 mg PO Q6H PRN 04/17/18 23:18 Oxygen Therapy [RC] PRN Up ad Maribel [RC] ASDIRECTED VTE/DVT Education [RC] PER UNIT ROUTINE Vital Signs [RC] Q4H Sequential Compression Device [OM.PC] Per Unit Routine Resuscitation Status Routine 04/18/18 06:00 Blood Glucose Check, Bedside [RC] TIDAC 04/18/18 07:30 Insulin Aspart [NovoLOG] See Protocol SUBCUT TIDAC 04/18/18 08:30 metFORMIN [Glucophage] 1,000 mg PO BIDPC 04/18/18 09:00 Lisinopril [Prinivil] 20 mg PO DAILY 04/18/18 09:03 Morphine 2 mg IVPUSH Q2H PRN 04/18/18 09:15 Clindamycin Phosphate [Cleocin] 300 mg Sodium Chloride 0.9% [Normal Saline] 50 ml IV Q6H 04/18/18 09:21 Consult to Diabetic Nurse Specialist [CONS] Routine 04/18/18 12:00 Vancomycin 1,250 mg Sodium Chloride 0.9% [Normal Saline] 250 ml IV Q8H 04/18/18 21:00 Insulin Glarg,Human.Rec.Analog [LantUS Solostar] 7 units SUBCUT BEDTIME 04/18/18 Breakfast [place] [employer] Diet [DIET] 04/19/18 05:11 BASIC METABOLIC PANEL,BMP [CHEM] AM CBC WITH AUTO DIFF [HEME] AM 04/20/18 05:11 BASIC METABOLIC PANEL,BMP [CHEM] AM CBC WITH AUTO DIFF [HEME] AM - Plan Plan:: 47 yo male admitted with facial cellultis and early abcess formation of the upperlip/nose. Facial cellulitis/abscess: continue vancomycin and clindamycin. consult claim processing specialist tomorrow. DM: on ssi and diabetic diet.
[2018-04-18] MEDS: Clindamycin Phosphate in D5W 300 MG in Premix Bag 1 BAG IV SCH ×6 (09:42→21:59)
[2018-04-18] MEDS ORDERED: Insulin Glargine,Human Rec. Analog 100 Units/ML 3 ML Pen SUBCUT SCH (21:00)
[2018-04-19] MEDS: Morphine 2 MG/ML Syringe IVPUSH PRN ×7 (00:34→22:28)
[2018-04-19] MEDS: Clindamycin Phosphate in D5W 300 MG in Premix Bag 1 BAG IV SCH ×8 (02:16→20:41)
[2018-04-19 03:39] LABS: CHLORIDE,CL 99 mmol/L (98-107); SODIUM,NA 133 mmol/L (136-148)
[2018-04-19] MEDS: Insulin Aspart 100 Units/ML 3 ML Pen SUBCUT SCH ×4 (06:38→20:30)
[2018-04-19] MEDS: oxyCODONE 5 MG Tab PO PRN ×3 (07:34→21:25)
[2018-04-19] MEDS: metFORMIN 500 MG Tab PO SCH ×2 (07:35→17:44)
--- NOTE | 2018-04-19 08:49 | PCM.PN ---
- General Info Date of Service: 04/19/18 Admission Dx/Problem (Free Text): Admission Diagnosis/Problem Admission Diagnosis/Problem Cellulitis and abscess of face Subjective Update: Feeling somewhat improved from yesterday. Reports he had clear drainage from wound last night and non-purulent. Feels his face and lip are a lot better. No trouble swallowing or eating. No chest pain or SOB. Functional Status: Reports: Pain Controlled, Tolerating Diet, Ambulating, Urinating - Review of Systems General: Reports: No Symptoms. Denies: Fever, Fatigue, Malaise HEENT: Reports: No Symptoms. Denies: Eye Pain, Headaches, Sore Throat, Visual Changes Pulmonary: Reports: No Symptoms. Denies: Shortness of Breath, Cough, Sputum Cardiovascular: Reports: No Symptoms. Denies: Chest Pain, Edema Gastrointestinal: Reports: No Symptoms. Denies: Abdominal Pain, Nausea, Vomiting Genitourinary: Reports: No Symptoms Musculoskeletal: Reports: No Symptoms Skin: Reports: Other (redness and swelling improved to upper lip and L nare.) Neurological: Reports: No Symptoms Psychiatric: Reports: No Symptoms - Patient Data Vitals - Most Recent: Last Vital Signs Temp 98.6 F 04/19/18 07:45 Pulse 74 04/19/18 07:45 Resp 16 04/19/18 07:45 BP 128/81 04/19/18 07:45 Pulse Ox 96 04/19/18 07:45 Weight - Most Recent: 128.049 kg I&O - Last 24 Hours: Intake & Output 04/18/18 04/19/18 04/19/18 22:59 06:59 14:59 Intake Total 1040 800 Output Total 1700 1200 Balance -660 -400 Lab Results Last 24 Hours: Laboratory Results - last 24 hr 04/18/18 04/18/18 04/18/18 Range/Units 08:12 08:12 11:53 WBC (4.0-11.0) K/uL RBC (4.50-5.90) M/uL Hgb (13.0-17.0) g/dL Hct (38.0-50.0) % MCV (80.0-98.0) fL MCH (27.0-32.0) pg MCHC (31.0-37.0) g/dL RDW Std Deviation (28.0-62.0) fl RDW Coeff of Cyndie (11.0-15.0) % Plt Count (150-400) K/uL MPV (7.40-12.00) fL Neut % (Auto) (48.0-80.0) % Lymph % (Auto) (16.0-40.0) % [place] % (Auto) (0.0-15.0) % Eos % (Auto) (0.0-7.0) % Baso % (Auto) (0.0-1.5) % Neut # (Auto) (1.4-5.7) K/uL Lymph # (Auto) (0.6-2.4) K/uL [place] # (Auto) (0.0-0.8) K/uL Eos # (Auto) (0.0-0.7) K/uL Baso # (Auto) (0.0-0.1) K/uL Nucleated RBC % /100WBC Nucleated RBCs # K/uL Sodium 133 L (136-148) mmol/L Potassium 4.2 (3.5-5.1) mmol/L Chloride 100 (98-107) mmol/L Carbon Dioxide 26.4 (21.0-32.0) mmol/L BUN 12 (7.0-18.0) mg/dL Creatinine 0.8 (0.8-1.3) mg/dL Est Cr Clr Drug Dosing 111.63 mL/min Estimated GFR (MDRD) > 60.0 ml/min Glucose 378 H (74-106) mg/dL POC Glucose 277 H (60-110) mg/dL Hemoglobin A1c 11.4 H (4.5-6.2) % Calcium 8.6 (8.5-10.1) mg/dL Vancomycin Trough (5.0-10.0) ug/mL 04/18/18 04/18/18 04/19/18 Range/Units 16:40 20:32 03:18 WBC (4.0-11.0) K/uL RBC (4.50-5.90) M/uL Hgb (13.0-17.0) g/dL Hct (38.0-50.0) % MCV (80.0-98.0) fL MCH (27.0-32.0) pg MCHC (31.0-37.0) g/dL RDW Std Deviation (28.0-62.0) fl RDW Coeff of Cyndie (11.0-15.0) % Plt Count (150-400) K/uL MPV (7.40-12.00) fL Neut % (Auto) (48.0-80.0) % Lymph % (Auto) (16.0-40.0) % [place] % (Auto) (0.0-15.0) % Eos % (Auto) (0.0-7.0) % Baso % (Auto) (0.0-1.5) % Neut # (Auto) (1.4-5.7) K/uL Lymph # (Auto) (0.6-2.4) K/uL [place] # (Auto) (0.0-0.8) K/uL Eos # (Auto) (0.0-0.7) K/uL Baso # (Auto) (0.0-0.1) K/uL Nucleated RBC % /100WBC Nucleated RBCs # K/uL Sodium (136-148) mmol/L Potassium (3.5-5.1) mmol/L Chloride (98-107) mmol/L Carbon Dioxide (21.0-32.0) mmol/L BUN (7.0-18.0) mg/dL Creatinine (0.8-1.3) mg/dL Est Cr Clr Drug Dosing mL/min Estimated GFR (MDRD) ml/min Glucose (74-106) mg/dL POC Glucose 242 H 261 H (60-110) mg/dL Hemoglobin A1c (4.5-6.2) % Calcium (8.5-10.1) mg/dL Vancomycin Trough 6.0 (5.0-10.0) ug/mL 04/19/18 04/19/18 04/19/18 Range/Units 03:18 03:18 06:01 WBC 7.45 (4.0-11.0) K/uL RBC 4.79 (4.50-5.90) M/uL Hgb 14.6 (13.0-17.0) g/dL Hct 41.1 (38.0-50.0) % MCV 85.8 (80.0-98.0) fL MCH 30.5 (27.0-32.0) pg MCHC 35.5 (31.0-37.0) g/dL RDW Std Deviation 41.1 (28.0-62.0) fl RDW Coeff of Cyndie 13 (11.0-15.0) % Plt Count 249 (150-400) K/uL MPV 9.60 (7.40-12.00) fL Neut % (Auto) 59.9 (48.0-80.0) % Lymph % (Auto) 28.3 (16.0-40.0) % [place] % (Auto) 7.9 (0.0-15.0) % Eos % (Auto) 3.8 (0.0-7.0) % Baso % (Auto) 0.1 (0.0-1.5) % Neut # (Auto) 4.5 (1.4-5.7) K/uL Lymph # (Auto) 2.1 (0.6-2.4) K/uL [place] # (Auto) 0.6 (0.0-0.8) K/uL Eos # (Auto) 0.3 (0.0-0.7) K/uL Baso # (Auto) 0.0 (0.0-0.1) K/uL Nucleated RBC % 0.0 /100WBC Nucleated RBCs # 0 K/uL Sodium 133 L (136-148) mmol/L Potassium 4.2 (3.5-5.1) mmol/L Chloride 99 (98-107) mmol/L Carbon Dioxide 25.2 (21.0-32.0) mmol/L BUN 15 (7.0-18.0) mg/dL Creatinine 0.8 (0.8-1.3) mg/dL Est Cr Clr Drug Dosing 111.63 mL/min Estimated GFR (MDRD) > 60.0 ml/min Glucose 276 H (74-106) mg/dL POC Glucose 214 H (60-110) mg/dL Hemoglobin A1c (4.5-6.2) % Calcium 8.6 (8.5-10.1) mg/dL Vancomycin Trough (5.0-10.0) ug/mL Med Orders - Current: Current Medications Acetaminophen (Tylenol) 650 mg PO Q6H PRN PRN Reason: Pain Last Admin: 04/18/18 16:58 Dose: 650 mg Clindamycin Phosphate 300 mg/ (Premix) 50 mls @ 100 mls/hr IV Q6H [facility] Last Admin: 04/19/18 02:16 Dose: 100 mls/hr Vancomycin HCl 1,250 mg/ (Sodium Chloride) 250 mls @ 166.667 mls/hr IV Q6H [facility] Last Admin: 04/19/18 05:25 Dose: 166.667 mls/hr Ibuprofen (Motrin) 400 mg PO Q6H PRN PRN Reason: Pain Last Admin: 04/18/18 20:16 Dose: 400 mg Insulin Aspart (Novolog) 0 unit SUBCUT TIDAC [facility]; Protocol Last Admin: 04/19/18 06:38 Dose: 2 unit Insulin Glargine (Lantus Solostar) 7 units SUBCUT BEDTIME [facility] Last Admin: 04/18/18 20:34 Dose: 7 units Lisinopril (Prinivil) 20 mg PO DAILY [facility] Last Admin: 04/18/18 09:18 Dose: 20 mg Metformin HCl (Glucophage) 1,000 mg PO BIDPC [facility] Last Admin: 04/19/18 07:35 Dose: 1,000 mg Morphine Sulfate (Morphine) 2 mg IVPUSH Q2H PRN PRN Reason: Pain Last Admin: 04/19/18 07:35 Dose: 2 mg Oxycodone HCl (Oxycodone) 5 mg PO Q4H PRN PRN Reason: Pain Last Admin: 04/19/18 07:34 Dose: 5 mg Sodium Chloride (Saline Flush) 10 ml FLUSH ASDIRECTED PRN PRN Reason: Keep Vein Open Last Admin: 04/17/18 18:00 Dose: 10 ml Sodium Chloride (Saline Flush) 2.5 ml FLUSH ASDIRECTED PRN PRN Reason: Keep Vein Open Last Admin: 04/17/18 18:00 Dose: 2.5 ml Vancomycin HCl (Pharmacy To Dose - Vancomycin) 1 dose .XX ASDIRECTED [facility] Discontinued Medications Clindamycin Phosphate 600 mg/ (Premix) 50 mls @ 100 mls/hr IV ONETIME ONE Stop: 04/17/18 18:10 Last Admin: 04/17/18 17:57 Dose: 100 mls/hr Sodium Chloride (Normal Saline) 1,000 mls @ 999 mls/hr IV .Bolus ONE Stop: 04/17/18 18:56 Last Admin: 04/17/18 18:03 Dose: 999 mls/hr Sodium Chloride (Normal Saline) 1,000 mls @ 999 mls/hr IV .Bolus ONE Stop: 04/17/18 19:45 Last Admin: 04/17/18 19:53 Dose: 999 mls/hr Vancomycin HCl 1 gm/ Sodium (Chloride) 250 mls @ 250 mls/hr IV ONETIME ONE Stop: 04/17/18 21:06 Last Admin: 04/17/18 20:16 Dose: 250 mls/hr Vancomycin HCl 1,250 mg/ (Dextrose/Water) 250 mls @ 166.667 mls/hr IV Q8H [facility] Last Admin: 04/18/18 03:15 Dose: 166.667 mls/hr Vancomycin HCl 1,250 mg/ (Sodium Chloride) 250 mls @ 166.667 mls/hr IV Q8H [facility] Last Admin: 04/19/18 05:40 Dose: Not Given Vancomycin HCl 1,250 mg/ (Sodium Chloride) 250 mls @ 166.667 mls/hr IV Q6H [facility] Iopamidol (Isovue Multipack-370 (76%)) 75 ml IVPUSH ONETIME STA Stop: 04/17/18 19:04 Last Admin: 04/17/18 19:04 Dose: 75 ml Ketorolac Tromethamine (Toradol) 30 mg IVPUSH ONETIME ONE Stop: 04/17/18 17:45 Last Admin: 04/17/18 17:57 Dose: 30 mg - Exam General: Alert, Oriented, Cooperative HEENT: Pupils Equal Neck: Supple, Lymphadenopathy (scant mandibular lymphadenopathy to L .) Lungs: Clear to Auscultation, Normal Respiratory Effort Cardiovascular: Regular Rate, Regular Rhythm, No Murmurs GI/Abdominal Exam: Normal Bowel Sounds, Soft, Non-Tender Extremities: Normal Inspection, Normal Range of Motion Neurological: No New Focal Deficit Psy/Mental Status: Alert, Normal Affect, Normal Mood - Problem List & Annotations (1) Facial abscess SNOMED Code(s): 528313396 Code(s): L02.01 - CUTANEOUS ABSCESS OF FACE Status: Acute Current Visit: Yes (2) Facial cellulitis SNOMED Code(s): 062346579 Code(s): L03.211 - CELLULITIS OF FACE Status: Acute Current Visit: Yes (3) Diabetes type 2, uncontrolled SNOMED Code(s): 39899709, 754564577 Code(s): E11.65 - TYPE 2 DIABETES MELLITUS WITH HYPERGLYCEMIA Status: Chronic Current Visit: Yes Qualifiers: Diabetes mellitus radio dispatcher insulin use: without residential use Diabetes mellitus complication status: with hyperglycemia Qualified Code(s): E11.65 - Type 2 diabetes mellitus with hyperglycemia (4) Obesity SNOMED Code(s): 834137137, 376352967 Code(s): E66.9 - OBESITY, UNSPECIFIED Status: Chronic Current Visit: Yes (5) HTN (hypertension) SNOMED Code(s): 21754254 Code(s): I10 - ESSENTIAL (PRIMARY) HYPERTENSION Status: Chronic Current Visit: Yes Qualifiers: Hypertension type: essential hypertension Qualified Code(s): I10 - Essential (primary) hypertension - Problem List Review Problem List Initiated/Reviewed/Updated: Yes - Plan Plan:: 47 yo male admitted with facial cellultis and early abcess formation of the upper lip/nose. 1. Facial cellulitis/abscess: Improving. No leukocytosis. Continue Vancomycin and Clindamycin. He would like to speak with specialist regarding drainage if needed. Consult Plastic surgery, Dr. Ward today. Dr Ward will come evaluate patient for possible I&D this afternoon. Continue current treatment. 2. DM Type 2, uncontrolled: Continue Metformin and Glimiperide. Started on Lantus last night, 7 units. BS this morning 276. Will increase Lantus to 10 units bedtime. Continue SSI and diabetic diet. COnsult DM educator. Will need to start insulin at home due to A1c 11.4. 3. HTN: Stable. Continue Lisinopril. VTE prophylaxis: SCDs Dispo: 1-2 days pending improvement.
[2018-04-19] MEDS: Lisinopril 10 MG Tab PO SCH (09:23)
[2018-04-19] MEDS: Acetaminophen 325 MG Tab PO PRN (10:17)
[2018-04-19] MEDS: Ibuprofen 400 MG Tab PO PRN (11:58)
--- NOTE | 2018-04-19 16:55 | CT ---
EXAM DATE: 04/17/18 PATIENT'S AGE: 47 Patient: KENYON PROCTOR Facility: [place], [place] Site . Site : [id number] Study: CT Facial [id number] 7:01:55 PM Ordering Physician: Matteo Barrow Final Report: INDICATION: Infranasal and superior labial swelling. TECHNIQUE: CT scan of the face was performed. IV contrast. FINDINGS: Soft tissues: Marked soft tissue swelling in the maxillary infranasal region. Anterior to the maxilla, small areas of low attenuation fluid within the diffuse soft tissue thickening and edema. The largest measures 1.3 cm. This is in the midline. No additional fluid collections. No suspicious mass lesions. Sinuses: Retention cysts in the maxillary sinuses. Normal frontal and ethmoid sinuses. Normal sphenoid sinuses. Orbits: Normal. Symmetric. Intracranial structures: No visualized abnormalities. \Osseous structures: No osseous abnormalities. IMPRESSION: 1. Cellulitis and early abscess formation in the midline in the infranasal premaxillary region and superior labial region. 2. Minimal retention cysts in the maxillary sinuses. Please note that all CT scans at this facility use dose modulation, iterative reconstruction, and/or weight-based dosing when appropriate to reduce radiation dose to as low as reasonably achievable. Dictated by Gabino Lau MD @ Apr 17 2018 7:28PM (Electronic Signature) Report Signed by Proxy. [facility] NURSING FACILITYCarolyn
[2018-04-19] MEDS ORDERED: Insulin Glargine,Human Rec. Analog 100 Units/ML 3 ML Pen SUBCUT SCH (21:00)
[2018-04-20] MEDS: Morphine 2 MG/ML Syringe IVPUSH PRN ×3 (02:18→08:16)
[2018-04-20] MEDS: Clindamycin Phosphate in D5W 300 MG in Premix Bag 1 BAG IV SCH ×4 (02:19→08:22)
[2018-04-20] MEDS: oxyCODONE 5 MG Tab PO PRN (03:45)
[2018-04-20 03:54] LABS: CHLORIDE,CL 99 mmol/L (98-107); SODIUM,NA 133 mmol/L (136-148)
[2018-04-20] MEDS: Insulin Aspart 100 Units/ML 3 ML Pen SUBCUT SCH (07:06)
[2018-04-20] MEDS: metFORMIN 500 MG Tab PO SCH (08:21)
[2018-04-20] MEDS: Lisinopril 10 MG Tab PO SCH (08:21)
--- NOTE | 2018-04-20 09:04 | PCM.DCSUM1 ---
Discharge Summary - Hospital Course Brief History: 47 yo male with uncontrolled DM type 2 and HTN presented to the ED with swelling and induraton of his upper lip after snorting cocaine. He was seen in [facility] with attempted drainage and treated with ampicillin which was switch to levaquin. He was seen in the ER [place] 04/16 and then again today in which he was noted to have increase in swelling and erythema of the upper/ lip. CT of the face reported cellulitis and early abscess formation in the midline in the infranasa premaxillary region and superior labial region. Patient refused the offer to transfer to [place]. Diagnosis: Stroke: No - Discharge Data Discharge Date: 04/20/18 Discharge Disposition: Home, Self-Care 01 Condition: Good - Discharge Diagnosis/Problem(s) (1) Facial abscess SNOMED Code(s): 229728351 ICD Code: L02.01 - CUTANEOUS ABSCESS OF FACE Status: Acute Current Visit : Yes (2) Facial cellulitis SNOMED Code(s): 087407650 ICD Code: L03.211 - CELLULITIS OF FACE Status: Acute Current Visit: Yes (3) Diabetes type 2, uncontrolled SNOMED Code(s): 82998731, 592815926 ICD Code: E11.65 - TYPE 2 DIABETES MELLITUS WITH HYPERGLYCEMIA Status: Chronic Current Visit: Yes Qualifiers: Diabetes mellitus intermediate insulin use: without coal carrier use Diabetes mellitus complication status: with hyperglycemia Qualified Code(s): E11.65 - Type 2 diabetes mellitus with hyperglycemia (4) Obesity SNOMED Code(s): 550613105, 533540219 ICD Code: E66.9 - OBESITY, UNSPECIFIED Status: Chronic Current Visit: Yes (5) HTN (hypertension) SNOMED Code(s): 96761007 ICD Code: I10 - ESSENTIAL (PRIMARY) HYPERTENSION Status: Chronic Current Visit: Yes Qualifiers: Hypertension type: essential hypertension Qualified Code(s): I10 - Essential (primary) hypertension - Patient Summary/Data Consults: Consultations 04/18/18 09:21 Consult to Diabetic Nurse Specialist [CONS] Routine - Patient Instructions Diet: Diabetic Diet Activity: No Strenuous Activities Driving: Do Not Drive Showering/Bathing: May Shower Notify Provider of: Fever, Increased Pain, Swelling and Redness - Discharge Plan *PRESCRIPTION DRUG MONITORING PROGRAM REVIEWED*: Yes *COPY OF PRESCRIPTION DRUG MONITORING REPORT IN PATIENT JOSUÉ: Yes Prescriptions/Med Rec: Clindamycin HCl 300 mg PO QID #48 capsule Ibuprofen [Motrin] 600 mg PO Q6H PRN #1 tab PRN Reason: Pain Insulin Degludec [Tresiba Flextouch U-200] 12 unit SQ BEDTIME #1 box Insulin Lispro [Humalog Kwikpen] See Protocol SQ TIDAC #1 box oxyCODONE 5 mg PO Q6H PRN #8 tablet PRN Reason: Severe Pain Home Medications: Home Meds Glimepiride 1 tab PO DAILY 04/16/18 [History] Lisinopril 1 tab PO DAILY 04/16/18 [History] metFORMIN HCl [Metformin HCl] 1 tab PO BID 04/17/18 [History] Acetaminophen [Tylenol] 650 mg PO Q6H PRN tablet 04/20/18 [Rx] Clindamycin HCl 300 mg PO QID #48 capsule 04/20/18 [Rx] Ibuprofen [Motrin] 600 mg PO Q6H PRN #1 tab 04/20/18 [Rx] Insulin Degludec [Tresiba Flextouch U-200] 12 unit SQ BEDTIME #1 box 04/20/18 [ Rx] Insulin Lispro [Humalog Kwikpen] See Protocol SQ TIDAC #1 box 04/20/18 [Rx] oxyCODONE 5 mg PO Q6H PRN #8 tablet 04/20/18 [Rx] Patient Handouts: Oxycodone tablets or capsules, Ibuprofen tablets and capsules , Clindamycin capsules, Cellulitis, Adult, [id number], Insulin Degludec injection, Insulin Lispro injection Referrals: [facility] [Outside] Miguel Pratt MD [Resident] - 04/26/18 9:30 am - Discharge Summary/Plan Comment DC Time >30 min.: No Discharge Summary/Plan Comment: Discharge Diagnoses: Facial cellulitis with suspected abscess, spontaneously drained DM type 2, uncontrolled A1c 11.4 HTN Obesity Substance abuse. Kel was admitted and treated for facial cellulitis and supsected abscess, likely secondary to uncontrolled DM. He was treated with Vancomycin and Clindamycin. No fever or leukocytosis noted during stay. Dr Ward, plastic surgeon, was consulted on Thursday regarding possible need for I&D, but during Thursday night, this area started draining, clear serous fluid, non purulent intermittent and drastically improve. Dr Ward recommended continued IV therapy overnight and discharge today with Clindamycin. He was instructed and met with Dm educator to learn how to give insulin due to uncontrolled DM. He was educated on the need to improve A1c to decrease poor outcomes such as cardiac disease and further infections. He was encouraged to lose weight and improve diet choices. He will be continued on Metformin and Glimiperide as well as Tresiba 12 units nightly along with Humalog with SSI and 1:12 carb correction with meals. He will be set up with PCP here in [place], he does work 20 days on then off for some time in which he returns to home. He is to continue Clindamycin for another 12 days, 300 mg QID. He was given Oxycodone 5 mg 1 tab every 6 hours as needed for pain, #8 tabs no refills along with Tylenol an Ibuprofen. Encouraged to stop cocaine use as well. He is to return to the ED or clinic if fevers start, pain worsens, or redness and swelling return or worsen. He verbalized understanding. - General Info Date of Service: 04/20/18 Admission Dx/Problem (Free Text: Admission Diagnosis/Problem Admission Diagnosis/Problem Cellulitis and abscess of face Subjective Update: Feeling better today, pain is ok. Still hurts. Swelling and erythema much improved. Eager to go home. No chest pain or SOB. No abdominal pain or diarrhea. Functional Status: Reports: Pain Controlled, Tolerating Diet, Ambulating, Urinating - Review of Systems General: Reports: Fatigue ("I need my own bed."). Denies: Fever, Weakness HEENT: Reports: Other (swelling to upper lip, improving. along with redness to nasolabial space. ). Denies: Sore Throat, Visual Changes Pulmonary: Reports: No Symptoms. Denies: Shortness of Breath Cardiovascular: Reports: No Symptoms. Denies: Chest Pain, Palpitations, Edema Gastrointestinal: Reports: No Symptoms. Denies: Abdominal Pain, Nausea, Vomiting Genitourinary: Reports: No Symptoms. Denies: Dysuria, Frequency, Burning Skin: Reports: No Symptoms Neurological: Reports: No Symptoms Psychiatric: Reports: No Symptoms - Patient Data Vitals - Most Recent: Last Vital Signs Temp 98.1 F 04/20/18 08:00 Pulse 67 04/20/18 08:00 Resp 18 04/20/18 08:00 BP 111/68 04/20/18 08:21 Pulse Ox 93 L 04/20/18 08:00 Weight - Most Recent: 128.049 kg I&O - Last 24 hours: Intake & Output 04/19/18 04/20/18 04/20/18 22:59 06:59 14:59 Intake Total 2650 Balance 2650 Lab Results - Last 24 hrs: Laboratory Results - last 24 hr 04/19/18 04/19/18 04/19/18 Range/Units 11:32 16:41 20:50 WBC (4.0-11.0) K/uL RBC (4.50-5.90) M/uL Hgb (13.0-17.0) g/dL Hct (38.0-50.0) % MCV (80.0-98.0) fL MCH (27.0-32.0) pg MCHC (31.0-37.0) g/dL RDW Std Deviation (28.0-62.0) fl RDW Coeff of Cyndie (11.0-15.0) % Plt Count (150-400) K/uL MPV (7.40-12.00) fL Neut % (Auto) (48.0-80.0) % Lymph % (Auto) (16.0-40.0) % [place] % (Auto) (0.0-15.0) % Eos % (Auto) (0.0-7.0) % Baso % (Auto) (0.0-1.5) % Neut # (Auto) (1.4-5.7) K/uL Lymph # (Auto) (0.6-2.4) K/uL [place] # (Auto) (0.0-0.8) K/uL Eos # (Auto) (0.0-0.7) K/uL Baso # (Auto) (0.0-0.1) K/uL Nucleated RBC % /100WBC Nucleated RBCs # K/uL Sodium (136-148) mmol/L Potassium (3.5-5.1) mmol/L Chloride (98-107) mmol/L Carbon Dioxide (21.0-32.0) mmol/L BUN (7.0-18.0) mg/dL Creatinine (0.8-1.3) mg/dL Est Cr Clr Drug Dosing mL/min Estimated GFR (MDRD) ml/min Glucose (74-106) mg/dL POC Glucose 368 H 287 H 317 H (60-110) mg/dL Calcium (8.5-10.1) mg/dL Vancomycin Trough (5.0-10.0) ug/mL 04/20/18 04/20/18 04/20/18 Range/Units 03:30 03:30 03:30 WBC 7.41 (4.0-11.0) K/uL RBC 4.80 (4.50-5.90) M/uL Hgb 14.7 (13.0-17.0) g/dL Hct 40.6 (38.0-50.0) % MCV 84.6 (80.0-98.0) fL MCH 30.6 (27.0-32.0) pg MCHC 36.2 (31.0-37.0) g/dL RDW Std Deviation 39.5 (28.0-62.0) fl RDW Coeff of Cyndie 13 (11.0-15.0) % Plt Count 262 (150-400) K/uL MPV 9.30 (7.40-12.00) fL Neut % (Auto) 63.1 (48.0-80.0) % Lymph % (Auto) 24.8 (16.0-40.0) % [place] % (Auto) 7.2 (0.0-15.0) % Eos % (Auto) 4.6 (0.0-7.0) % Baso % (Auto) 0.3 (0.0-1.5) % Neut # (Auto) 4.7 (1.4-5.7) K/uL Lymph # (Auto) 1.8 (0.6-2.4) K/uL [place] # (Auto) 0.5 (0.0-0.8) K/uL Eos # (Auto) 0.3 (0.0-0.7) K/uL Baso # (Auto) 0.0 (0.0-0.1) K/uL Nucleated RBC % 0.0 /100WBC Nucleated RBCs # 0 K/uL Sodium 133 L (136-148) mmol/L Potassium 4.1 (3.5-5.1) mmol/L Chloride 99 (98-107) mmol/L Carbon Dioxide 26.3 (21.0-32.0) mmol/L BUN 12 (7.0-18.0) mg/dL Creatinine 0.8 (0.8-1.3) mg/dL Est Cr Clr Drug Dosing 111.63 mL/min Estimated GFR (MDRD) > 60.0 ml/min Glucose 260 H (74-106) mg/dL POC Glucose (60-110) mg/dL Calcium 9.1 (8.5-10.1) mg/dL Vancomycin Trough 14.4 H (5.0-10.0) ug/mL Med Orders - Current: Current Medications Acetaminophen (Tylenol) 650 mg PO Q6H PRN PRN Reason: Pain Last Admin: 04/19/18 10:17 Dose: 650 mg Clindamycin Phosphate 300 mg/ (Premix) 50 mls @ 100 mls/hr IV Q6H [facility] Last Admin: 04/20/18 08:22 Dose: 100 mls/hr Vancomycin HCl 1,250 mg/ (Sodium Chloride) 250 mls @ 166.667 mls/hr IV Q6H [facility] Last Admin: 04/20/18 04:14 Dose: 166.667 mls/hr Ibuprofen (Motrin) 400 mg PO Q6H PRN PRN Reason: Pain Last Admin: 04/19/18 11:58 Dose: 400 mg Insulin Aspart (Novolog) 0 unit SUBCUT TIDAC [facility]; Protocol Last Admin: 04/20/18 07:06 Dose: 4 units Insulin Glargine (Lantus Solostar) 10 units SUBCUT BEDTIME [facility] Last Admin: 04/19/18 20:55 Dose: 10 units Lisinopril (Prinivil) 20 mg PO DAILY [facility] Last Admin: 04/20/18 08:21 Dose: 20 mg Metformin HCl (Glucophage) 1,000 mg PO BIDPC [facility] Last Admin: 04/20/18 08:21 Dose: 1,000 mg Morphine Sulfate (Morphine) 2 mg IVPUSH Q2H PRN PRN Reason: Pain Last Admin: 04/20/18 08:16 Dose: 2 mg Oxycodone HCl (Oxycodone) 5 mg PO Q4H PRN PRN Reason: Pain Last Admin: 04/20/18 03:45 Dose: 5 mg Sodium Chloride (Saline Flush) 10 ml FLUSH ASDIRECTED PRN PRN Reason: Keep Vein Open Last Admin: 04/17/18 18:00 Dose: 10 ml Sodium Chloride (Saline Flush) 2.5 ml FLUSH ASDIRECTED PRN PRN Reason: Keep Vein Open Last Admin: 04/17/18 18:00 Dose: 2.5 ml Vancomycin HCl (Pharmacy To Dose - Vancomycin) 1 dose .XX ASDIRECTED [facility] Discontinued Medications Clindamycin Phosphate 600 mg/ (Premix) 50 mls @ 100 mls/hr IV ONETIME ONE Stop: 04/17/18 18:10 Last Admin: 04/17/18 17:57 Dose: 100 mls/hr Sodium Chloride (Normal Saline) 1,000 mls @ 999 mls/hr IV .Bolus ONE Stop: 04/17/18 18:56 Last Admin: 04/17/18 18:03 Dose: 999 mls/hr Sodium Chloride (Normal Saline) 1,000 mls @ 999 mls/hr IV .Bolus ONE Stop: 04/17/18 19:45 Last Admin: 04/17/18 19:53 Dose: 999 mls/hr Vancomycin HCl 1 gm/ Sodium (Chloride) 250 mls @ 250 mls/hr IV ONETIME ONE Stop: 04/17/18 21:06 Last Admin: 04/17/18 20:16 Dose: 250 mls/hr Vancomycin HCl 1,250 mg/ (Dextrose/Water) 250 mls @ 166.667 mls/hr IV Q8H [facility] Last Admin: 04/18/18 03:15 Dose: 166.667 mls/hr Vancomycin HCl 1,250 mg/ (Sodium Chloride) 250 mls @ 166.667 mls/hr IV Q8H [facility] Last Admin: 04/19/18 05:40 Dose: Not Given Vancomycin HCl 1,250 mg/ (Sodium Chloride) 250 mls @ 166.667 mls/hr IV Q6H [facility] Insulin Aspart (Novolog) 0 unit SUBCUT TIDAC [facility]; Protocol Last Admin: 04/19/18 20:30 Dose: Not Given Insulin Glargine (Lantus Solostar) 7 units SUBCUT BEDTIME [facility] Last Admin: 04/18/18 20:34 Dose: 7 units Iopamidol (Isovue Multipack-370 (76%)) 75 ml IVPUSH ONETIME STA Stop: 04/17/18 19:04 Last Admin: 04/17/18 19:04 Dose: 75 ml Ketorolac Tromethamine (Toradol) 30 mg IVPUSH ONETIME ONE Stop: 04/17/18 17:45 Last Admin: 04/17/18 17:57 Dose: 30 mg - Exam General: Reports: Alert, Oriented, Cooperative, No Acute Distress HEENT: Reports: Pupils Reactive, Mucous Membr. Moist/Brush, Other (Swelling to upper oral labial much improved, scant erythema noted, no drainage noted. ) Neck: Reports: Supple Lungs: Reports: Clear to Auscultation, Normal Respiratory Effort Cardiovascular: Reports: Regular Rate, Regular Rhythm GI/Abdominal Exam: Normal Bowel Sounds Back Exam: Reports: Normal Inspection, Full Range of Motion Extremities: Normal Inspection, Normal Range of Motion, Non-Tender Skin: Reports: Warm, Dry Neurological: Reports: No New Focal Deficit Psy/Mental Status: Reports: Alert, Normal Affect, Normal Mood
== END 2018-04-20 11:00 | disposition home or self-care (01) | DRG 603 ==
LOC: MW.ED 17:01 → MW.MS 20:07
PROVIDERS: ADMIT Internal Medicine; ATTEND Internal Medicine
DX: L02.01 Cutaneous abscess of face (principal); L03.211 Cellulitis of face; Z68.41 Body mass index [BMI] 40.0-44.9, adult; E11.65 Type 2 diabetes mellitus with hyperglycemia; E66.9 Obesity, unspecified; I10 Essential (primary) hypertension; Z79.82 Long term (current) use of aspirin; Z79.899 Other long term (current) drug therapy
CPT/HCPCS: 36415; 70488; 70488-26; 80048; 80053; 80202; 82962; 83036; 85025; 96361; 96365; 96367; 96375; 99284; 99285-25; A9270-GY; J1815-GY ×2; J1885; J2270; J3370; J3490; J7040; J7050; J7060; Q9967